=== PATIENT | male | born 1935 | race Caucasian/White ===

== ENCOUNTER 2016-08-10 10:36 | Emergency (ER) | payer MEDICARE, OTHER ==
[2016-08-10 12:32] LABS: Hematocrit 42 % (42-52); Hemoglobin 14.3 g/dl (14.0-18.0); Mean Corpuscular HGB Conc 34 g/dl (31-36); Mean Corpuscular Hemoglobin 32 pg (27-31); Mean Corpuscular Volume 93 fL (80-94); Mean Platelet Volume 9 um3 (7.4-10.4); Red Blood Count 4.51 10^6/ul (4.0-5.4); Red Cell Distribution Width 13 % (10.5-15); White Blood Count 9.6 10^3/ul (3.5-10.8)
[2016-08-10 13:06] LABS: TSH (Thyroid Stimulating Horm) 1.96 mcIU/mL (0.34-5.60)
[2016-08-10 13:14] LABS: Albumin 3.9 g/dL (3.2-5.2); BUN/Creatinine Ratio 22.1 (8-20); Calcium 9.2 mg/dL (8.6-10.3); EGFR Non-African American 85.6 (>60); Globulin 2.7 g/dL (2-4); Potassium 4.1 mmol/L (3.5-5.0); Total Bilirubin 0.7 mg/dL (0.2-1.0); Total Protein 6.6 g/dL (6.4-8.9)
[2016-08-10 13:17] LABS: Magnesium 1.9 mg/dL (1.9-2.7)
[2016-08-10 13:27] LABS: Urine Bacteria Absent (Absent); Urine Bilirubin Negative (Negative); Urine Glucose Negative (Negative); Urine Nitrite Negative (Negative)
[2016-08-10] MEDS: NS 0.9% 1000 ML* 2,000 ML IV ONE ×2 (13:34→13:35)
--- NOTE | 2016-08-10 15:29 | PN ---
Progress Note - Progress Note Note: I was asked by Dr. Davila to repair a left palm laceration for Mr. Pollock. The patient's wound was cleansed with sterile saline and injected with 2% lidocaine , which the patient tolerated well. He has a left palm linear laceration that is 4 cm long, 4mm deep, 5mm wide. This was repaired with 3 deep stitches of 4.0 polysorb, and 12 superficial simple interupted 5.0 nylon stitches. The wound was dressed with xeroform, clean gauze, curlex and cobane. The patient tolerated the procedure well. Follow-up instructions were given.
[2016-08-10 15:51] VITALS: BP 184/88
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
== END 2016-08-10 16:00 | disposition home or self-care (01) ==
LOC: ED 10:36
DX: S61.412A Laceration without foreign body of left hand, initial encounter (principal); R42 Dizziness and giddiness; W19.XXXA Unspecified fall, initial encounter; Y93.9 Activity, unspecified; Y92.9 Unspecified place or not applicable
CPT/HCPCS: 36415; 80053; 81003; 81015; 83605; 83735; 84443; 84484; 85025; 87086; 93005; 96360; 99284

== ENCOUNTER 2016-10-20 11:33 | Emergency (ER) | payer MEDICARE, OTHER ==
--- NOTE | 2016-10-20 11:49 | RAD ---
Amended report to correct patient account number. Indication: Neurologic changes. CT of the brain was performed without IV contrast. Ventricular structures are midline. No midline shift is noted. The extraction spaces are unremarkable. There is no evidence of intracranial mass or hemorrhage. No other high or low density lesions are identified. Calcifications of the choroid plexus is noted. Mastoid air cells are otherwise unremarkable. Mucosal thickening of the maxillary sinuses is noted. IMPRESSION: No intracranial mass or hemorrhage is noted. Findings discussed with Dr. Parker at 11:46 AM. [facility]
[2016-10-20] MEDS ORDERED: NS 0.9% 1000 ML* 1,000 ML IV ONE (11:56)
[2016-10-20] MEDS ORDERED: Etomidate* 2 MG/ML 20 ML VIAL (40 MG) ONE (11:57)
[2016-10-20] MEDS ORDERED: Succinylcholine* 20 MG/ML 10 ML VIAL ONE (11:57)
[2016-10-20] MEDS: Etomidate* 2 MG/ML 10 ML VIAL IV ONE ×2 (12:01→12:03)
[2016-10-20] MEDS ORDERED: Succinylcholine* 20 MG/ML 10 ML VIAL IV ONE (12:03)
[2016-10-20] MEDS ORDERED: Labetalol IV* 5 MG/ML 20 ML VIAL IV PUSH ONE ×2 (12:07→12:09)
[2016-10-20] MEDS ORDERED: Labetalol IV* 5 MG/ML 20 ML VIAL ONE (12:10)
[2016-10-20] MEDS ORDERED: Midazolam* 1 MG/ML 5 ML VIAL (5 MG) SLOW PUSH ONE (12:16)
[2016-10-20] MEDS ORDERED: Midazolam* 1 MG/ML 5 ML VIAL (5 MG) ONE (12:17)
--- NOTE | 2016-10-20 12:29 | RAD ---
Amended report to correct patient account number. Indication: Code [id number]. Unresponsive. Comparison: August 25, 2007 Technique: Upright AP 1157 hours Report: Clear lungs and pleural spaces. Negative for pneumothorax. The heart, pulmonary vasculature, and mediastinal contours are unremarkable. Unremarkable osseous structures and soft tissue contours. IMPRESSION: No evidence for acute intrathoracic disease. MTDD
--- NOTE | 2016-10-20 12:31 | RAD ---
Indication: Unresponsive. Post intubation. Comparison: 1157 hours exam of the same date. Technique: Supine AP chest 1224 hours Report: Endotracheal tube tip 5.5 cm above the Jennifer. Nasogastric tube passes to the stomach with the tip along the greater curvature at the fundus. Clear lungs and pleural spaces. The heart, pulmonary vasculature, and mediastinal contours are unremarkable. IMPRESSION: Acceptable position of the endotracheal tube and nasogastric tube.
[2016-10-20] MEDS ORDERED: Iodixanol* (CONTRAST) 320 MG/ML 100 ML SDV IV ONE (12:49)
[2016-10-20] MEDS ORDERED: Propofol* 500 MG/50 ML BTL IV SCH (13:00)
[2016-10-20] MEDS ORDERED: ALTEPLASE IV ONE ×3 (13:13→14:00)
[2016-10-20] MEDS ORDERED: Alteplase* 100 MG VIAL ONE (13:20)
--- NOTE | 2016-10-20 13:21 | RAD ---
CPT II: CPT II Codes: 3100F INDICATION: Unresponsiveness COMPARISON: Same day CT of the brain and carotid ultrasound dated February 09, 2011 TECHNIQUE: A CT angiogram of the head and neck was performed with 99 cc of Visipaque 320. Contiguous axial sections were obtained from the thoracic inlet through the [place]. Images were reconstructed in the sagittal, coronal planes and in a 3-D volume rendered format. The distal cervical internal carotid artery diameter is used as the denominater for stenosis measurement. CTA NECK: The common and internal carotid arteries are patent without hemodynamically significant stenosis. Right: The right common carotid artery at its more superior portion exhibit eccentric mural atheroma that causes greater than 50% degree stenosis of the right common carotid artery. At the carotid bulb there is only mild atherosclerosis. The diameter of the carotid bulb is 7 mm and the internal carotid artery immediately above the bifurcation is 7 mm indicating 0% degree stenosis at this site. Left: At the bifurcation the common carotid artery measures 7 mm in short axis diameter and the internal carotid artery, immediately above the bifurcation also measures 7 mm in short axis diameter indicating a 0% degree stenosis. The left vertebral artery exhibits dominance relative to the right up to the level of the transverse foramen of C1 transverse foramen. The intracranial portion of the superior most right vertebral artery is nonfilling with the basilar tip exclusively supplied by the left vertebral artery. CTA of the brain: The internal carotid, anterior and middle cerebral arteries appear are patent without high grade stenosis or occlusion. The vertebral, basilar and posterior cerebral arteries appear patent without high grade stenosis or occlusion. The posterior communicating artery at the [place] is absent. No focal luminal filling defect, aneurysm or vascular malformation is seen. NONVASCULAR FINDINGS: There is moderate to severe mucosal thickening of the bilateral ethmoid air cells with mild mucosal thickening the bilateral maxillary sinuses. The orogastric tube terminates beyond the level of imaging in the esophagus. The endotracheal tube terminates approximately at the level of the clavicular heads. IMPRESSION: 1. 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 2. Noncalcified plaque is seen narrowing the superior right common carotid artery below the carotid bifurcation by at least 60%. 3. 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 Findings were discussed with Dr. Aguirre over the telephone at approximately 1315 hours on October 20, 2016.
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
[2016-10-20 15:13] VITALS: BP 175/75
--- NOTE | 2016-10-20 15:45 | CONS ---
CONSULTATION REPORT: DATE OF CONSULT: 10/20/16 - EMERGENCY DEPT. PATIENT OF: Dr. Parker. HISTORY OF PRESENT ILLNESS: This 81-year-old man who was singing in front of longterm patients, he lives independently and roughly at 11, he collapsed. He was brought in by ambulance and he was initially a [place] and was noted to be responsive only to noxious stim and he moved all extremities. It is unclear but may have been posturing. He was sent for a CT scan which was negative and then when he came back from CT scan, he had some respiratory issues and he was given a dose of Versed and paralyzed using succinylcholine and was intubated. I saw him shortly after that. He moved extremities mildly to noxious stim and then he was put on a propofol drip. He has had no recent head trauma. He has been well in the recent past. I obtained this history from his son when he arrived within the hour and we are able to get the records from Dr. Samuel as well. Of note, the patient had been seen in the hospital in August of this year for dizziness and the dizziness was described as lasting about 30 minutes. He had a blood work done and an EKG and was sent home with the diagnosis of syncope with followup through Dr. Samuel. He has a history of hypertension and constipation and according to the son he has had a TURP in the past. He has had no bleeding problems and he was recently seen by Dr. Samuel also in August following his ER visit and he was begun on lisinopril 5 mg daily and he was thought to have periodic vertigo and he was also started on Colace 100 mg one to two a day. He has also had a head injury back in 2004. He is otherwise in good health and recent review of systems according to the son and Dr. Samuel's note from August show no other problems. There has been no recent surgeries and no bleeding difficulties. He has had a partial gastrectomy in the past. He is status post tonsillectomy, appendectomy. He has had a TURP and cholecystectomy most recently. SOCIAL HISTORY: He is a former cigarette smoker, quit 35 years ago. He had consumed alcohol in the past but not drunk since 1972. PHYSICAL EXAM: On exam, temperature 97.3, pulse 55, respirations 19, blood pressure 155/60. He is on propofol and is not reacting to noxious stim at this point and has no facial movements at this point. When I first saw him, he had some right esotropia. His pupils were 3 and sluggish facies. He was intubated but there is no obvious facial asymmetry. He lifted both arms off the bed to moderate noxious stimulation but this was brief and there was no clear posturing. Reflexes were trace. Chest: Clear. Cardiovascular: Regular rate and rhythm. Abdomen: Soft. DIAGNOSTIC STUDIES/LAB DATA: His CT scan showed no stroke or bleed. His CTA showed a right vertebral occlusion which I reviewed both with Dr. Pink and reading radiologist who called me after I spoke to Dr. Pink already, as well as I have contacted [facility], Dr. Campos. 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 His labs include the normal CBC other than a platelet count of 143. Normal INR and PTT. Normal CMP. His LDL was 96. I have ordered the TPA and I called into [facility] to discuss the appropriateness of transfer and I spoke to Dr. Campos after the TPA was ordered but before it was given, he agreed. This is a formulation as there was right vertebral occlusion that could be causing a low brainstem stroke and in this setting, TPA was most appropriate. He did not think that there is likely if the situation stays the same to be an intervention of the right vertebral but the patient is at definite risk for stroke extension into the basilar artery and if that happened, then the neurosurgeons would want to intervene and therefore we are transferring him by helicopter to [facility]. Since there is no immediate intervention, he wanted the TPA to be completed before the transfer and that is being done and the helicopter transfer is being arranged for. I have spoken to Dr. Parker about this. I have spoken to the son multiple times and discussed risks and benefits in detail of the TPA and the son is in full understanding and is agreeable with both giving TPA despite understanding the risks of bleeding and he agrees with the transfer. I had also discussed that with a nonfocal exam, we do not have absolute proof that this is a stroke but it is a most reasonable thing I discussed with him that we will be getting an MRI scan for further characterization but to do so, would delay giving the TPA and he understands this MRI scan would be done up in [place]. Thank you for sharing his case. [id number]/[facility] #: [id number] [place]
== END 2016-10-20 15:13 | disposition short-term general hospital (02) ==
LOC: ED 11:33
DX: I63.9 Cerebral infarction, unspecified (principal)
CPT/HCPCS: 70450; 70496; 70498; 71010; 94002; 94760; 96374; 96375; 99285; J0330; J2250; J2997; Q9967

== ENCOUNTER 2020-02-03 13:40 | Inpatient (IN) ==
[2020-02-03] MEDS ORDERED: NS 0.9% 1000 ml BAG 1,000 ML IV ONE (13:45)
[2020-02-03 14:47] LABS: Hematocrit 40 % (42-52); Hemoglobin 13.6 g/dL (14.0-18.0); Mean Corpuscular HGB Conc 34 g/dL (31-36); Mean Corpuscular Hemoglobin 32 pg (27-31); Mean Corpuscular Volume 94 fL (80-94); Mean Platelet Volume 8.7 fL (7.4-10.4); Platelet Count 124 10^3/uL (150-450); Red Blood Count 4.26 10^6 /uL (4.18-5.48); Red Cell Distribution Width 13 % (10-15); White Blood Count 17.1 10^3/uL (3.5-10.8)
[2020-02-03 14:57] LABS: Activated Partial Thrombo Time 30.3 seconds (26.0-38.0); INR 1.45 (0.82-1.09)
[2020-02-03] MEDS ORDERED: Piperacillin/Tazobac ADVAN 3.375 GM in NS 0.9% 100 ml BAG 100 ML IVPB ONE (14:59)
[2020-02-03 15:05] LABS: Influenza A Molecular Negative (Negative); Influenza B Molecular Negative (Negative)
[2020-02-03 15:12] LABS: ALT 13 U/L (7-52); AST 21 U/L (13-39); Albumin 4.1 g/dL (3.2-5.2); Albumin/Globulin Ratio 1.4 (1-3); Alkaline Phosphatase 82 U/L (34-104); Anion Gap 7 mmol/L (2-11); BUN/Creatinine Ratio 16.2 (8-20); Blood Urea Nitrogen 19 mg/dL (6-24); C Reactive Protein 89.05 mg/L (<8.01); CO2 Carbon Dioxide 26 mmol/L (22-32); Chloride 103 mmol/L (101-111); EGFR African American 71.9 (>60); EGFR Non-African American 59.4 (>60); Glucose 163 mg/dL (70-100); Potassium 4.3 mmol/L (3.5-5.0); Sodium 136 mmol/L (135-145); Total Protein 7.1 g/dL (6.4-8.9)
[2020-02-03 15:24] LABS: Troponin I 0.03 ng/mL (<0.03)
[2020-02-03 15:38] LABS: ABS Lymphocytes 0.9 10^3/ul (1.0-4.8); ABS Monocytes 1.8 10^3/ul (0-0.8); ABS Neutrophils 14.3 10^3/ul (1.5-7.7); Lymphocyte % 5.5 %
[2020-02-03] MEDS ORDERED: Ondansetron 4 mg VIAL 2 MG/ML 2 ml VIAL IV PRN (16:54)
[2020-02-03 17:02] LABS: Urine Appearance Turbid; Urine Bilirubin Negative (Negative); Urine Blood 2+ (Negative); Urine Color Yellow; Urine Glucose Negative (Negative); Urine Ketones Negative (Negative); Urine Nitrite Negative (Negative); Urine Protein 2+(100 mg/dL) (Negative); Urine Specific Gravity 1.015 (1.010-1.030); Urine Urobilinogen Negative (Negative)
[2020-02-03 17:15] LABS: Urine Bacteria 3+ (Absent); Urine Red Blood Cell 2+(6-10/hpf) (Absent); Urine White Blood Cell 3+(>20/hpf) (Absent)
[2020-02-03] MEDS ORDERED: DOXYcycline 100 MG in NS 0.9% 250 ml 250 ML IVPB SCH (18:00)
[2020-02-03] MEDS: Enoxaparin 40 MG/0.4 ML SYR SUBCUT SCH (20:47)
[2020-02-03] MEDS: cefTRIAXone 1 gm/50 mL NS BAG 1 GM/50 ML BAG IVPB SCH (23:44)
[2020-02-04 00:13] LABS: Troponin I 0.01 ng/mL (<0.03)
[2020-02-04] MEDS: NS 0.9% 1000 ml BAG 1,000 ML IV SCH ×2 (03:17→08:42)
[2020-02-04 06:42] LABS: ABS Lymphocytes 1.5 10^3/ul (1.0-4.8); ABS Monocytes 1.3 10^3/ul (0-0.8); ABS Neutrophils 11.6 10^3/ul (1.5-7.7); Eosinophil % 0.1 %; Hematocrit 37 % (42-52); Lymphocyte % 10.5 %; Mean Corpuscular HGB Conc 35 g/dL (31-36); Mean Corpuscular Hemoglobin 33 pg (27-31); Mean Corpuscular Volume 95 fL (80-94); Mean Platelet Volume 8.5 fL (7.4-10.4); Platelet Count 109 10^3/uL (150-450); Red Blood Count 3.94 10^6 /uL (4.18-5.48); Red Cell Distribution Width 14 % (10-15); White Blood Count 14.4 10^3/uL (3.5-10.8)
[2020-02-04 07:12] LABS: BUN/Creatinine Ratio 17.2 (8-20); Calcium 8.2 mg/dL (8.6-10.3); EGFR African American 93.7 (>60); EGFR Non-African American 77.4 (>60); Magnesium 1.8 mg/dL (1.9-2.7); Potassium 3.9 mmol/L (3.5-5.0)
[2020-02-04] MEDS: DOXYcycline 100 MG in NS 0.9% 250 ml 250 ML IVPB SCH ×2 (08:41→19:50)
[2020-02-04] MEDS: Enoxaparin 40 MG/0.4 ML SYR SUBCUT SCH (17:39)
[2020-02-04] MEDS: cefTRIAXone 1 gm/50 mL NS BAG 1 GM/50 ML BAG IVPB SCH (19:50)
[2020-02-05 05:58] LABS: ABS Eosinophils 0.1 10^3/ul (0-0.6); ABS Lymphocytes 0.8 10^3/ul (1.0-4.8); ABS Monocytes 0.7 10^3/ul (0-0.8); ABS Neutrophils 6.6 10^3/ul (1.5-7.7); Eosinophil % 0.8 %; Hematocrit 37 % (42-52); Hemoglobin 12.4 g/dL (14.0-18.0); Lymphocyte % 9.4 %; Mean Corpuscular HGB Conc 34 g/dL (31-36); Mean Corpuscular Hemoglobin 32 pg (27-31); Mean Corpuscular Volume 94 fL (80-94); Mean Platelet Volume 8.4 fL (7.4-10.4); Platelet Count 115 10^3/uL (150-450); Red Blood Count 3.88 10^6 /uL (4.18-5.48); Red Cell Distribution Width 14 % (10-15); White Blood Count 8.1 10^3/uL (3.5-10.8)
[2020-02-05 06:21] LABS: BUN/Creatinine Ratio 18.3 (8-20); Calcium 7.9 mg/dL (8.6-10.3); EGFR African American 108.3 (>60); EGFR Non-African American 89.5 (>60); Magnesium 1.6 mg/dL (1.9-2.7); Potassium 3.5 mmol/L (3.5-5.0)
[2020-02-05] MEDS: DOXYcycline 100 MG in NS 0.9% 250 ml 250 ML IVPB SCH (10:07)
[2020-02-05] MEDS ORDERED: Magnesium Sulf 4 GM/100 ML IV 4,000 MG/100 ML BAG IVPB ONE (11:00)
[2020-02-05] MEDS: Enoxaparin 40 MG/0.4 ML SYR SUBCUT SCH (17:34)
[2020-02-05] MEDS: cefTRIAXone 1 gm/50 mL NS BAG 1 GM/50 ML BAG IVPB SCH (21:19)
[2020-02-06 06:23] LABS: BUN/Creatinine Ratio 18.4 (8-20); EGFR African American 118.2 (>60); EGFR Non-African American 97.7 (>60); Potassium 3.4 mmol/L (3.5-5.0)
[2020-02-06] MEDS ORDERED: Potassium Chlor 20 meq TAB.ER PO ONE (06:58)
[2020-02-06 10:49] LABS: ABS Eosinophils 0.1 10^3/ul (0-0.6); ABS Monocytes 0.8 10^3/ul (0-0.8); ABS Neutrophils 3.4 10^3/ul (1.5-7.7); Eosinophil % 1.3 %; Hematocrit 35 % (42-52); Hemoglobin 12.4 g/dL (14.0-18.0); Lymphocyte % 18.5 %; Mean Corpuscular HGB Conc 36 g/dL (31-36); Mean Corpuscular Hemoglobin 33 pg (27-31); Mean Corpuscular Volume 92 fL (80-94); Mean Platelet Volume 7.8 fL (7.4-10.4); Platelet Count 117 10^3/uL (150-450); Red Blood Count 3.76 10^6 /uL (4.18-5.48); Red Cell Distribution Width 13 % (10-15); White Blood Count 5.2 10^3/uL (3.5-10.8)
[2020-02-06] MEDS: Enoxaparin 40 MG/0.4 ML SYR SUBCUT SCH (17:09)
[2020-02-06] MEDS: NS 0.9% w/ 20 Meq KCL 1000 ml 1,000 ML IV SCH (18:54)
[2020-02-06] MEDS: cefTRIAXone 1 gm/50 mL NS BAG 1 GM/50 ML BAG IVPB SCH (21:55)
[2020-02-07] MEDS: NS 0.9% w/ 20 Meq KCL 1000 ml 1,000 ML IV SCH (06:47)
[2020-02-07] MEDS ORDERED: Potassium Chlor 20 meq TAB.ER PO ONE (08:01)
[2020-02-07 09:23] LABS: BUN/Creatinine Ratio 18.9 (8-20); EGFR African American 121.9 (>60); EGFR Non-African American 100.8 (>60); Magnesium 1.7 mg/dL (1.9-2.7); Potassium 3.9 mmol/L (3.5-5.0)
[2020-02-07] MEDS ORDERED: Magnesium Sulfate IV 3 GM in NS 0.9% 100 ml BAG 100 ML IVPB ONE (12:00)
[2020-02-07 12:15] VITALS: BP 138/52
== END 2020-02-07 18:00 | disposition home or self-care (01) | DRG 872 ==
LOC: MED 13:40 → ED 13:40 → MED 02-05 05:41
PROVIDERS: ADMIT Student in an Organized Health Care Education/Training Program; ATTEND Internal Medicine